=== PATIENT | female | born 2000 | race Caucasian/White ===

== ENCOUNTER 2020-07-21 01:22 | Emergency (ER) | payer OTHER ==
[~2020-07-21] VITALS: Ht 157.5 cm; Wt 102.1 kg
[~2020-07-21 01:22] MED LIST: ACETAMINOPHEN-1 EAC1 PO; NOHOMEMEDICATIONS
[2020-07-21 01:57] LABS: URINE BILIRUBIN NEGATIVE (Negative); URINE BLOOD NEGATIVE (Negative); URINE CLARITY CLEAR; URINE COLOR YELLOW; URINE GLUCOSE-RANDOM NEGATIVE (Negative); URINE KETONES NEGATIVE (Negative); URINE LEUKOCYTES-REFLEX NEGATIVE (Negative); URINE NITRITE-REFLEX NEGATIVE (Negative); URINE PROTEIN NEGATIVE (Negative); URINE SPECIFIC GRAVITY 1.025 (1.005-1.030); URINE UROBILINOGEN 0.2 E.U./dl (0.2-1.0)
[2020-07-21 02:08] LABS: HEMATOCRIT 38.7 % (37.0-47.0); HEMOGLOBIN 12.5 gm/dL (12.0-15.0); MCH 28.1 pg (26.0-34.0); MCHC 32.3 g/dL (28.0-37.0); MCV 87.1 fL (80.0-100.0); MPV 8.1 fl. (7.2-11.1); RBC 4.44 mil/uL (4.20-5.00); RDW-CV 13.9 % (10.5-14.5); WBC 11.2 thou/uL (4.0-11.0)
[2020-07-21 02:19] LABS: CALCIUM 8.8 mg/dL (8.5-10.1); CREATININE 0.8 mg/dL (0.6-1.3); POTASSIUM 3.9 mmol/L (3.5-5.1)
[2020-07-21] MEDS ORDERED: IBUPROFEN 600600 M1 PO (03:29)
[2020-07-21] MEDS ORDERED: KEFLEX500 M1 PO (03:29)
[2020-07-21 03:46] VITALS: BP 116/63
== END 2020-07-21 03:47 | disposition home or self-care (01) ==
LOC: M.ERS 01:22
PROVIDERS: Personal Emergency Response Attendant
DX: K42.9 Umbilical hernia without obstruction or gangrene (principal); L03.311 Cellulitis of abdominal wall; Z88.2 Allergy status to sulfonamides